=== PATIENT | male | born 1980 | race Hispanic/Latino ===

== ENCOUNTER 2020-10-27 02:18 | Emergency (ER) | payer OTHER ==
[2020-10-27 02:25] VITALS: BP 139/89
[2020-10-27 03:23] VITALS: BP 142/80
[2020-10-27] MEDS ORDERED: ACETAMINOPHEN 500 MG TABLET ONE (03:37)
[2020-10-27] MEDS ORDERED: ACETAMINOPHEN 500 MG TABLET PO ONE (04:00)
== END 2020-10-27 04:28 | disposition home or self-care (01) ==
LOC: EDH 02:18
DX: R50.9 Fever, unspecified (principal); J02.9 Acute pharyngitis, unspecified; R10.13 Epigastric pain; M54.5 Low back pain; Z20.822 Contact with and (suspected) exposure to COVID-19; E78.00 Pure hypercholesterolemia, unspecified
CPT/HCPCS: 87426